=== PATIENT | female | born 1980 | race Caucasian/White ===

== ENCOUNTER 2021-06-04 10:21 | Emergency (ER) | payer OTHER ==
[2021-06-04] MEDS ORDERED: Ketorolac 30 MG/ML SDV ONE (11:18)
[2021-06-04] MEDS ORDERED: Take Home: Ondansetron 4 MG Tab.DIS, 5 Tab Pack ONE (11:18)
[2021-06-04] MEDS ORDERED: Take Home: Acetaminophen/HYDROcodone 325-10 MG, 5 Tab Pack ONE (11:18)
[2021-06-04] MEDS ORDERED: Sodium Chloride 0.9% 1,000 ML IV ONE (11:25)
[2021-06-04 20:17] LABS: ANION GAP 14.9 mmol/L (5-15); CHLORIDE,CL 101 mmol/L (98-107); SODIUM,NA 139 mmol/L (136-145)
== END 2021-06-04 12:05 | disposition home or self-care (01) ==
LOC: VM.ED 10:21
DX: R10.9 Unspecified abdominal pain (principal); Z90.710 Acquired absence of both cervix and uterus; Z87.442 Personal history of urinary calculi
CPT/HCPCS: 36415; 80053; 81001; 82150; 83690; 85025; 86140; 96374; 99284; A9270; J1885; J7030; Q0162

== ENCOUNTER 2022-01-10 07:00 | Emergency (ER) | payer OTHER ==
[2022-02-01 15:43] LABS: CORONAVIRUS COVID-19 NAA POSITIVE (NEGATIVE); STREP A BY PCR NOT DETECTED (NOT DETECT)
== END 2022-01-10 08:35 | disposition home or self-care (01) ==
LOC: VM.ED 07:00
DX: U07.1 COVID-19 (principal)
CPT/HCPCS: 0240U; 87651; 99283

== ENCOUNTER 2023-04-19 08:46 | Emergency (ER) | payer OTHER ==
[2023-04-19] MEDS ORDERED: Acetaminophen 500 MG Tab PO ONE (08:56)
[2023-04-19 09:41] LABS: CORONAVIRUS COVID-19 NAA NEGATIVE (NEGATIVE); INFLUENZA A NAA NEGATIVE (NEGATIVE); INFLUENZA B NAA NEGATIVE (NEGATIVE); RESPIRATORY SYNCYTIAL VIR NAA NEGATIVE (NEGATIVE)
== END 2023-04-19 09:50 | disposition home or self-care (01) ==
LOC: VM.ED 08:46
DX: J02.0 Streptococcal pharyngitis (principal); Z20.822 Contact with and (suspected) exposure to COVID-19; Z86.16 Personal history of COVID-19
CPT/HCPCS: 0241U; 87651; 99283; A9270